=== PATIENT | male | born 1955 | race Caucasian/White ===

== ENCOUNTER → 2023-02-12 14:03 | Outpatient (BNVA) | payer MEDICARE, BC, SELFPAY | PROVIDERS: Family Provider Internal Medicine; Visit Provider Family Medicine | DX: I10 Essential (primary) hypertension (principal) | CPT/HCPCS: 80053; 80061 ==

== ENCOUNTER → 2023-09-30 08:40 | Outpatient (BNVA) | payer MEDICARE, BC, SELFPAY | PROVIDERS: Family Provider Internal Medicine; PCP Family Medicine; Visit Provider Family Medicine | DX: I10 Essential (primary) hypertension (principal); Z00.00 Encounter for general adult medical examination without abnormal findings; Z71.85 Encounter for immunization safety counseling; Z71.89 Other specified counseling; Z53.20 Procedure and treatment not carried out because of patient's decision for unspecified reasons; N18.31 Chronic kidney disease, stage 3a; M12.9 Arthropathy, unspecified | CPT/HCPCS: 80048 ==

== ENCOUNTER → 2024-11-17 09:01 | Outpatient (BNVA) | payer MEDICARE, BC, SELFPAY | PROVIDERS: Family Provider Internal Medicine; PCP Family Medicine; Visit Provider Family Medicine | DX: Z12.5 Encounter for screening for malignant neoplasm of prostate (principal); I10 Essential (primary) hypertension; N18.31 Chronic kidney disease, stage 3a; Z13.1 Encounter for screening for diabetes mellitus | CPT/HCPCS: 80053; 80061; 83036; G0103 ==